=== PATIENT | female | born 1990 | race Caucasian/White ===

== ENCOUNTER 2016-09-13 10:58 | Emergency (ER) | payer OTHER ==
[~2016-09-13] VITALS: Ht 157.5 cm; Wt 54.5 kg
[~2016-09-13 10:58] MED LIST: AMOXICILLIN500 MG PO; Colchicine,Colcrys PO; ENDOCET 5-3251 EACH PO; IBUPROFEN800 MG PO; Motrin PO; NOHOMEMEDS; PRENATAL TABLE1 EAC3 PO; PRENATAL VITAM1 EAC3 PO; PRENATAL1 EACH PO; PROMETHAZINE HC50 M1 PO; TYLENOL EXTRA500 MG PO; TYLENOL REGULA325 MG PO; VICODIN 5-3001 EACH PO; ZOFRAN4 MG PO; ZOLOFT25 MG PO; ZOLOFT50 MG PO
[2016-09-13 11:29] LABS: HEMATOCRIT 38.6 % (36.0-46.0); MCH 29.1 PG (29.0-34.0); MCHC 32.6 G/DL (30.0-36.0); MCV 89.1 FL (83-99); MEAN PLAT.VOLUME 10.7 uM^3 (9.5-12.4); PLATELET COUNT 287 K/uL (156-360); RBC DIS.WIDTH-SD 41.8 % (39-53); RED BLOOD COUNT 4.33 M/uL (3.80-5.20); WHITE BLOOD COUNT 6.9 K/uL (4.1-10.2)
[2016-09-13 11:42] LABS: CHLORIDE 105 mEq/L (99-109); SODIUM 141 mEq/L (136-147)
[2016-09-13 11:43] LABS: GLUCOSE 86 mg/dL (70-99)
[2016-09-13 11:45] LABS: ANION GAP 7 MEQ/L (2-14)
[2016-09-13 11:47] LABS: GFR ESTIMATE (CALCULATED) > 59 mL/min/
[2016-09-13 11:48] LABS: UREA NITROGEN (BUN) 11 mg/dL (9-23)
[2016-09-13 11:54] LABS: TROP-I INTERPRETATION NEGATIVE; TROPONIN-I < 0.01 ng/mL (0.0-0.30)
[2016-09-13 14:19] LABS: TROP-I INTERPRETATION NEGATIVE; TROPONIN-I < 0.01 ng/mL (0.0-0.30)
[2016-09-13] MEDS ORDERED: TORADOL10 MG PO (14:37)
[2016-09-13] MEDS ORDERED: PREDNISONE20 MG PO (14:37)
[2016-09-13] MEDS ORDERED: PERCOCET 5/31 TABLET PO (14:37)
[2016-09-13 15:07] VITALS: BP 108/66
[2016-09-13] MEDS ORDERED: PHENERGAN25 MG PR (22:44)
[2016-09-13] MEDS ORDERED: ZOFRAN ODT4 MG PO (22:45)
== END 2016-09-13 15:08 | disposition home or self-care (01) ==
LOC: EME 10:58
PROVIDERS: Nurse Practitioner Family
DX: R07.9 Chest pain, unspecified (principal)
CPT/HCPCS: 71020; 80048; 84484; 85027; 93005; 99281; 99284; J1885; J7512

== ENCOUNTER 2016-09-13 20:10 | Emergency (ER) | payer OTHER ==
[~2016-09-13] VITALS: Ht 160 cm; Wt 72.7 kg
[~2016-09-13 20:10] MED LIST changes: +PERCOCET 5/31 TABLET PO; +PREDNISONE20 MG PO; +TORADOL10 MG PO
[2016-09-13] MEDS ORDERED: PHENERGAN25 MG PR (22:44)
[2016-09-13] MEDS ORDERED: ZOFRAN ODT4 MG PO (22:45)
[2016-09-14 00:04] VITALS: BP 123/63
== END 2016-09-14 00:23 | disposition home or self-care (01) ==
LOC: EME 20:10
DX: R11.2 Nausea with vomiting, unspecified (principal); R19.7 Diarrhea, unspecified; R10.84 Generalized abdominal pain; Z87.891 Personal history of nicotine dependence
CPT/HCPCS: 80053; 81003; 84702; 85027; 99281; 99285; J2550; J2765